=== PATIENT | male | born 1990 | race Caucasian/White ===

== ENCOUNTER 2019-10-14 12:04 | Outpatient (CLI) | payer SELFPAY ==
[2019-10-14 12:48] LABS: Basophils # 0.3 10^3/uL (0.0-0.1); Basophils % 2.3 %; Eosinophils # 1.4 10^3/uL (0.0-0.8); Eosinophils % 9.7 %; Hematocrit 49.7 % (42.0-52.0); Hemoglobin 15.6 g/dL (11.7-16.6); Lymphocytes # 4.1 10^3/uL (0.8-4.8); Lymphocytes % 28.8 %; Mean Corpuscular HGB Conc 31.4 g/dL (30.0-36.0); Mean Corpuscular Hemoglobin 26.9 pg (28.0-34.0); Mean Corpuscular Volume 85.7 fL (80-94); Monocytes # 0.8 10^3/uL (0.2-0.9); Monocytes % 5.7 %; Neutrophils % 53.2 %; Nucleated Red Blood Cells % 0.2 %; Platelet Count 30 10^3/cmm (130-400); Red Cell Distribution Width 18.9 % (12.1-15.1); White Blood Count 14.1 10^3/uL (4.0-10.0)
[2019-10-14 13:12] LABS: Alanine Aminotransferase 18 U/L (0-41); Albumin Level 4.5 g/dL (3.5-5.2); Alkaline Phosphatase 117 IU/L (40-130); Anion Gap 14.9 (5-19); Aspartate Amino Transferase 24 U/L (0-40); Blood Urea Nitrogen 11 mg/dL (6-20); Calcium 9.8 mg/dL (8.5-10.5); Carbon Dioxide 22 mmol/L (22-29); Chloride 104 mmol/L (98-107); Globulin 2.8 g/dL (1.3-4.6); Glomerular Filtration Rate 99.1 mL/min (90-130); Glucose 112 mg/dL (65-115); Osmolality Calculated 281 mOsm/kg (285-295); Potassium 3.9 mmol/L (3.5-5.1); Sodium 137 mmol/L (136-145); Total Bilirubin 0.4 mg/dL (0.15-1.2); Total Protein 7.3 g/dL (6.6-8.7)
[2019-10-14 14:01] LABS: Slide Review Slide Review Perform
--- NOTE | 2019-10-14 16:23 | ONC FU_ITS ---
Dr. Simmons follow up note Patient: Nimesh Flores Unit #: [id number]: 1990 Dicatated By: Sury Simmons M.D.Date of Visit:Oct 14, 2019 Onc Med Follow-up/Prog Note History of Present Illness: Mr. Nimesh Flores, 29 -year-old gentleman with long-standing history of ITP. As per patient ,he was probably 'born with it', as his mother also has history of ITP for which she underwent splenectomy with good response. As per patient he has been treated with Medrol Dosepak many a times, last time was in early 2016 and also being treated with IVIG on multiple occasions and last time was in August or September 2014 and his platelets count usually improved but always stayed under 100,000. Never had bone marrow evaluation done before , never received platelet infusion, and never received Rituxan therapy or chemotherapy for ITP. No major episode of gross bleeding requiring hospitalization or intervention and last nosebleed was about year ago No history of night sweats or peripheral lymphadenopathy or weight loss. 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 H/o ibuprofen every other day for many years for chronic body aches. Was treated with high-dose steroids dexamethasone without significant response then he was treated with Rituxan again refractory finally underwent splenectomy on 11/27/2017 and post splenectomy. Count was 117,000 on 11/27/2017 but subsequently dropped and now fluctuating between 27,000 and [id number] Went to hospital on 07/15/2018 with right hand injury, as per patient he got upset and punched a wall x-ray of right hand done on 07/15/2018 showed mildly comminuted transverse fracture middle diaphysis fourth metacarpal, now surgical intervention is under consideration and CBC done on 07/17/2018 showed platelets count 83,000, hemoglobin 14.9 hematocrit 46.1 and white blood count 16.1 which could be due to splenectomy or inflammation due to recent right hand injury Came for follow-up, denies any specific complaint except progressive heartburn indigestion but no hemoptysis or hematemesis, no melena or hematochezia, no jaundice, no petechia or ecchymosis, no nosebleed or gum bleed, no hematuria, overall feeling generalized weakness and fatigue and also has gained about 20 pounds since his last visit over a year ago, patient lost follow-up, for no particular reasons. Medications: HYDROcodone-Acetaminophen 1 - 2 Tablet (of 7.5-325 mg) Oral q 8 hours PRN Allergies: No Known Allergies. Review of Systems: Constitutional - Appetite is fair and weight is stable. No fever, chills, hot flashes, or night sweats. Energy level is poor. Pt states I just feel weak and tired , ENMT - No sinus congestion/drainage. No mouth sores. No sore throat or difficulty swallowing, Hematologic/Lymphatic - No abnormal bruising or bleeding, Respiratory - No shortness of breath. No cough. No pleuritic pain or hemoptysis, Cardiovascular - No angina pain. No palpitations, Gastrointestinal - No nausea or vomiting. No heartburn or acid reflux. No diarrhea or constipation. No blood in the stool or black stools, Genitourinary (M) - No dysuria or hematuria. No urinary frequency. No urgency or incontinence, Musculoskeletal - Pt denies pain, Integumentary - Denies alopecia, blistering, bruising, dry skin, facial burning, nail changes, photosensitivity, pruritus, rash and urticaria, Neurologic - No headache or dizziness. No numbness/paresthesias or other focal neurologic symptoms, Psychiatric - No anxiety or depression. No insomnia. Vital Signs: Performed on Oct 14, 2019 13:40 Height - 70.00 in Weight - 273.2 lbs (HIGH) BSA - 2.38 sq.m BMI - 39.20 (HIGH) Temperature - 99.3 F (HIGH) Pulse - 90 /min Respiration - 24 /min BP - 141/84 mm(hg) (HIGH) O2 Sat - 97 % Pain - 0 Performance Status: 0 - Fully active, able to carry on all predisease activities without restrictions. (ECOG) Physical Examination: ENMT - No mouth sores no thrush no jaundice, Respiratory - Lungs are clear, Cardiovascular - Regular rate and rhythm of heart, Abdomen - Soft, bowel sounds present, Extremities - No visible edema or old healing, ecchymosis. Lab/Imaging: Most recent lab results are not available for this patient. 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 Now status post splenectomy done on 11/27/2017 Postsplenectomy platelet count 117,000 on 11/27/2017 Status post Medrol Dosepak on many occasions last time was in early 2016 and IVIG probably 10 - 12 times last time was in August or September 2014, with [id number] response as later count usually stay under 100,000 Status post high-dose Decadron for 4 days till 07/17/2017 With no response eg ITP refractory to steroids No history of episode of major gross bleeding requiring intervention No history of bone marrow evaluation No history of Rituxan or chemotherapy use for ITP Chronic body aches takes ibuprofen 2 tablets every other day for many years Mother with history of ITP status post splenectomy with good results Episode of hematemesis after dose of high-dose dexamethasone status post EGD done on 07/09/2017 and he was also given platelet transfusion before the procedure. EGD showed hiatal hernia, in the prepyloric area, moderate diffuse gastritis which was erosive but there was no mucosal bleeding and duodenum was normal. He is now on Protonix and has had no further problems per his report. He has completed 4 weeks planned Rituxan. discussed with Mr Flores his bone marrow reports which showed no evidence of malignancy and megakaryocytes are normal in number and morphological development. Clinically it appears he has thrombocytopenia due to peripheral destruction probably due to ITP which is refractory to steroids. IVIG has been given in the past. His bone marrow showed adequate response and function.s/p r trial with Rituxan every week ???4 with no improvement, Subsequently underwent splenectomy On 11/27/2017 at that time his platelet count went up to 117,[address] 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 During follow-up his platelet count showed further drop to the range of 30,000, with no evidence of gross bleeding. Plan: Discussed with patient regarding his labs white blood count 14.1 hemoglobin 15.6 crit 49.7 platelets 30,000 with normal differential Clinically, patient is doing well with no signs symptoms suggestive of gross bleeding, follow-up CBC showed hemoglobin in the normal range with mild leukocytosis could be due to splenectomy but persistent moderate to severe thrombocytopenia resistant to main line treatment e.g. steroids, IVIG, Rituxan and now to splenectomy although his mother did respond well to splenectomy. Patient said his daughter was recently diagnosed with duong platelet syndrome and was wondering whether he has similar condition. Patient was told that he may need genetic testing to confirm like in patient with duong platelet syndrome usually there is NBEAL 2 gene mutation and on very rare occasion patient can have duong platelet syndrome even without this gene mutation. Moreover patient had bone marrow evaluation done here in the past which showed no evidence of myelofibrosis which is common in duong platelet syndrome and treatment is splenectomy and he has already undergone splenectomy. Or desmopressin. Being self-pay, patient is not interested in genetic testing at this point but in the future he may consider. Because of persistent heartburn indigestion, patient may have H. pylori induced gastritis and that is a common cause for ITP too, will consider EGD and if it shows any gastritis or peptic ulcer disease consider H. pylori testing and if it is positive then treatment, may benefit both indigestion heartburn as well as ITP Patient said when he was in correction about 2-3 years ago, he was tested for hepatitis and HIV and they were negative. We will also consider trial with TPO receptor agonist like Promacta, 50 mg p.o. daily if tolerated increase to 75 mg p.o. daily, patient is a self-pay so we will request assistance from manufacture. In the meantime we will review of peripheral blood smear, refer him to Dr. concepcion follow-up , possible EGD and H. pylori testing, also check TSH as some time hyperthyroidism can cause ITP, Return to clinic in 2 weeks with CBC and peripheral blood smear. Patient was advised in case of any evidence of gross bleeding, he need to go to hospital immediately and he was also advised to avoid any kind of trauma. Signed By: uSry Simmons M.D. <<Signature on File>>
[2019-10-14 19:13] LABS: LAB Peripheral Smear Sent for Review
== END 2019-10-14 12:05 | disposition home or self-care (01) ==
LOC: ONCMED 12:08
PROVIDERS: Visit Provider Internal Medicine Hematology & Oncology
DX: D69.3 Immune thrombocytopenic purpura (principal); R12 Heartburn; Z90.81 Acquired absence of spleen
CPT/HCPCS: 80053; 80500; 85025; 99214

== ENCOUNTER 2019-10-28 07:52 | Outpatient (CLI) | payer SELFPAY ==
[2019-10-28 08:39] LABS: Basophils # 0.5 10^3/uL (0.0-0.1); Basophils % 2.2 %; Eosinophils # 3.1 10^3/uL (0.0-0.8); Hematocrit 49.3 % (42.0-52.0); Hemoglobin 15.3 g/dL (11.7-16.6); Lymphocytes # 6.4 10^3/uL (0.8-4.8); Lymphocytes % 31.3 %; Mean Corpuscular Hemoglobin 26.9 pg (28.0-34.0); Mean Corpuscular Volume 86.6 fL (80-94); Monocytes # 1.3 10^3/uL (0.2-0.9); Monocytes % 6.4 %; Neutrophils # 9.14 10^3/uL (1.8-7.7); Neutrophils % 44.7 %; Nucleated Red Blood Cells # 0.1 /100WBC; Nucleated Red Blood Cells % 0.2 %; Positive M 1; Red Blood Count 5.69 10^6/uL (4.1-5.3); Red Cell Distribution Width 19.4 % (12.1-15.1); White Blood Count 20.5 10^3/uL (4.0-10.0)
[2019-10-28 09:06] LABS: Alanine Aminotransferase 19 U/L (0-41); Alkaline Phosphatase 101 IU/L (40-130); Anion Gap 12.1 (5-19); Aspartate Amino Transferase 22 U/L (0-40); Blood Urea Nitrogen 10 mg/dL (6-20); Calcium 8.7 mg/dL (8.5-10.5); Carbon Dioxide 23 mmol/L (22-29); Chloride 106 mmol/L (98-107); Globulin 3.1 g/dL (1.3-4.6); Glomerular Filtration Rate 132.4 mL/min (90-130); Glucose 112 mg/dL (65-115); Osmolality Calculated 281 mOsm/kg (285-295); Potassium 4.1 mmol/L (3.5-5.1); Sodium 137 mmol/L (136-145); Total Bilirubin 0.3 mg/dL (0.15-1.2); Total Protein 7.1 g/dL (6.6-8.7)
[2019-10-28 09:51] LABS: Platelet Count 73 10^3/cmm (130-400)
--- NOTE | 2019-10-29 17:03 | ONC FU_ITS ---
Dr. Simmons follow up note Patient: Nimesh Flores Unit #: [id number]: 1990 Dicatated By: Sury Simmons M.D.Date of Visit:Oct 28, 2019 Onc Med Follow-up/Prog Note History of Present Illness: Mr. Nimesh Flores, 29 -year-old gentleman with long-standing history of ITP. As per patient ,he was probably 'born with it', as his mother also has history of ITP for which she underwent splenectomy with good response. As per patient he has been treated with Medrol Dosepak many a times, last time was in early 2016 and also being treated with IVIG on multiple occasions and last time was in August or September 2014 and his platelets count usually improved but always stayed under 100,000. Never had bone marrow evaluation done before , never received platelet infusion, and never received Rituxan therapy or chemotherapy for ITP. No major episode of gross bleeding requiring hospitalization or intervention and last nosebleed was about year ago No history of night sweats or peripheral lymphadenopathy or weight loss. 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 H/o ibuprofen every other day for many years for chronic body aches. Was treated with high-dose steroids dexamethasone without significant response then he was treated with Rituxan again refractory finally underwent splenectomy on 11/27/2017 and post splenectomy. Count was 117,000 on 11/27/2017 but subsequently dropped and now fluctuating between 27,000 and 90012 Went to hospital on 07/15/2018 with right hand injury, as per patient he got upset and punched a wall x-ray of right hand done on 07/15/2018 showed mildly comminuted transverse fracture middle diaphysis fourth metacarpal, now surgical intervention is under consideration and CBC done on 07/17/2018 showed platelets count 83,000, hemoglobin 14.9 hematocrit 46.1 and white blood count 16.1 which could be due to splenectomy or inflammation due to recent right hand injury Came for follow-up, denies any specific complaint except as per patient, he took Promacta 50 mg p.o. daily for 2 days only when he developed severe headaches and and he called office and he was asked to hold until his return to clinic,, today he denies any more headaches no melena or hematochezia, no nosebleeds no gum bleed no petechia or ecchymosis, no hematuria. Medications: HYDROcodone-Acetaminophen 1 - 2 Tablet (of 7.5-325 mg) Oral q 8 hours PRN Allergies: No Known Allergies. Review of Systems: Constitutional - Appetite is fair and weight is stable. No fever, chills, hot flashes, or night sweats. Energy level is poor, ENMT - No sinus congestion/drainage. No mouth sores. No sore throat or difficulty swallowing, Hematologic/Lymphatic - No abnormal bruising or bleeding, Respiratory - No shortness of breath. No cough. No pleuritic pain or hemoptysis, Cardiovascular - No angina pain. No palpitations, Gastrointestinal - No nausea or vomiting. No heartburn or acid reflux. No diarrhea or constipation. No blood in the stool or black stools, Genitourinary (M) - No dysuria or hematuria. No urinary frequency. No urgency or incontinence, Musculoskeletal - Pt denies pain, Integumentary - Denies alopecia, blistering, bruising, dry skin, facial burning, nail changes, photosensitivity, pruritus, rash and urticaria, Neurologic - Positive for headaches. No dizziness. No numbness/paresthesias or other focal neurologic symptoms, Psychiatric - No anxiety or depression. No insomnia. Vital Signs: Performed on Oct 28, 2019 09:27 Height - 70.00 in Weight - 279.2 lbs (HIGH) BSA - 2.41 sq.m BMI - 40.06 (HIGH) Temperature - 98.3 F (LOW) Pulse - 85 /min Respiration - 18 /min BP - 158/78 mm(hg) (HIGH) O2 Sat - 97 % Pain - 0 Performance Status: 0 - Fully active, able to carry on all predisease activities without restrictions. (ECOG) Physical Examination: ENMT - Poor oral hygiene, no mouth sores, Respiratory - Lungs are clear, Cardiovascular - Regular rate and rhythm of heart, Abdomen - Soft, bowel sounds present, Extremities - No visible edema. Lab/Imaging: Test performed on Oct 14, 2019 12:17 Sodium 137 mmol/L Potassium 3.9 mmol/L Chloride 104 mmol/L CO2 22 mmol/L Anion Gap 14.9 BUN 11 mg/dL Creatinine 0.9 mg/dL Cr Clearance (Est) 210.36 mL/min eGFR 99.1 mL/min Glucose 112 mg/dL Calcium 9.8 mg/dL Protein, Total 7.3 g/dL Albumin 4.5 g/dL Globulin 2.8 g/dL Bilirubin, Total 0.4 mg/dL ALT (SGPT) 18 U/L AST (SGOT) 24 U/L Alkaline Phosphatase 117 IU/L WBC 14.1 10 3/uL RBC 5.80 10 6/uL HGB 15.6 g/dL HCT 49.7 % MCV 85.7 fL MCH 26.9 pg MCHC 31.4 g/dL RDW 18.9 % Platelet Count 30 10 3/cmm Neutrophils 7.50 10 3/uL Lymphocytes 4.1 10 3/uL Monocytes 0.8 10 3/uL Eosinophils 1.4 10 3/uL Basophils 0.3 10 3/uL Neutrophil % 53.2 % Lymphocyte % 28.8 % Monocyte % 5.7 % Eosinophil % 9.7 % Basophils % 2.3 % NRBC % 0.2 % CBC Slide Review Slide Review Perform Impression: 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 Now status post splenectomy done on 11/27/2017 Postsplenectomy platelet count 117,000 on 11/27/2017 Status post Medrol Dosepak on many occasions last time was in early 2016 and IVIG probably 10 - 12 times last time was in August or September 2014, with [id number] response as later count usually stay under 100,000 Status post high-dose Decadron for 4 days till 07/17/2017 With no response eg ITP refractory to steroids No history of episode of major gross bleeding requiring intervention No history of bone marrow evaluation No history of Rituxan or chemotherapy use for ITP Chronic body aches takes ibuprofen 2 tablets every other day for many years Mother with history of ITP status post splenectomy with good results Episode of hematemesis after dose of high-dose dexamethasone status post EGD done on 07/09/2017 and he was also given platelet transfusion before the procedure. EGD showed hiatal hernia, in the prepyloric area, moderate diffuse gastritis which was erosive but there was no mucosal bleeding and duodenum was normal. He is now on Protonix and has had no further problems per his report. He has completed 4 weeks planned Rituxan. discussed with Mr Flores his bone marrow reports which showed no evidence of malignancy and megakaryocytes are normal in number and morphological development. Clinically it appears he has thrombocytopenia due to peripheral destruction probably due to ITP which is refractory to steroids. IVIG has been given in the past. His bone marrow showed adequate response and function.s/p r trial with Rituxan every week ???4 with no improvement, Subsequently underwent splenectomy On 11/27/2017 at that time his platelet count went up to 117,[address] 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 During follow-up his platelet count showed further drop to the range of 30,000, with no evidence of gross bleeding. Plan: Discussed with patient regarding his labs white blood count 20.5 hemoglobin 15.3, hematocrit 49.3 platelets 73,000 compared to 30,000 on October 14, 2019, Peripheral blood smear done on October 14, 2019 showed marked thrombocytopenia with mild leukocytosis no blasts or blast equivalent cells identified Clinically, patient is doing well there are no signs symptom suggestive of gross bleeding, his follow-up labs showed his platelet count has improved to 73,000 from 30,000 on October 14, 2019, patient took Promacta 50 mg p.o. daily for 2 days starting October 21, 2019, when he developed severe headaches and he called the office and he was asked to hold. Patient said with that his headaches improved and patient also admits to smoking marijuana along with Promacta, not sure if there is any interaction. Patient was advised to not to smoke marijuana and try Promacta 50 mg p.o. daily again and if headaches happen we will discontinue permanently and may consider Nplate if needed. Patient return to clinic in 1 week with CBC Signed By: Sury Simmons M.D. <<Signature on File>>
== END 2019-10-28 07:53 | disposition home or self-care (01) ==
LOC: ONCMED 07:52
PROVIDERS: Visit Provider Internal Medicine Hematology & Oncology
DX: D69.3 Immune thrombocytopenic purpura (principal); R51 Headache; F12.90 Cannabis use, unspecified, uncomplicated; Z90.81 Acquired absence of spleen; Z79.1 Long term (current) use of non-steroidal anti-inflammatories (NSAID); Z83.2 Family history of diseases of the blood and blood-forming organs and certain disorders involving the immune mechanism; Z79.899 Other long term (current) drug therapy
CPT/HCPCS: 80053; 85025; 99214

== ENCOUNTER 2020-06-22 06:39 | Emergency (ER) | payer SELFPAY ==
[2020-06-22 06:44] VITALS: BP 149/80; PULSE 95; RESP 18; TEMP 36.6; O2SAT 96; BMI 34.2
--- NOTE | 2020-06-22 06:44 | XR_ITS ---
WS: [id number] Portable AP upright chest, 06/22/2020 Clinical Data: Cough Comparison: Portable chest, 11/13/2018 Findings: No nodules, masses or effusions are seen. The heart is normal. The pulmonary vascularity is not increased. No pneumonia or pneumothorax is seen. XR/XR chest 1V portable [id number] Impression: Negative chest.
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
[2020-06-22 07:04] VITALS: RESP 18; TEMP 36.6; O2SAT 96
== END 2020-06-22 07:04 | disposition home or self-care (01) ==
PROVIDERS: Emergency Provider Emergency Medicine
DX: Z04.1 Encounter for examination and observation following transport accident (principal); R07.89 Other chest pain; V89.2XXA Person injured in unspecified motor-vehicle accident, traffic, initial encounter
CPT/HCPCS: 71045; 99282

== ENCOUNTER → 2020-11-23 09:24 | Outpatient (BNVA) | payer OTHER, SELFPAY | PROVIDERS: Visit Provider Nurse Practitioner Family | DX: Z20.822 Contact with and (suspected) exposure to COVID-19 (principal) | CPT/HCPCS: 87635 ==

== ENCOUNTER → 2021-12-19 11:12 | Outpatient (BNVA) | payer OTHER, SELFPAY | PROVIDERS: Visit Provider Psychiatry & Neurology Psychiatry | DX: Z79.899 Other long term (current) drug therapy (principal); F41.1 Generalized anxiety disorder; F33.1 Major depressive disorder, recurrent, moderate | CPT/HCPCS: 80053; 80061; 83036; 84443; 85007; 85025 ==

== ENCOUNTER 2022-01-11 12:29 | Emergency (ER) | payer SELFPAY ==
[2022-01-11 13:12] VITALS: BP 135/79; PULSE 78; RESP 16; TEMP 36.5; O2SAT 97; BMI 36.1
--- NOTE | 2022-01-11 13:23 | US_ITS ---
WS: [id number] ULTRASOUND SOFT TISSUES RIGHT forearm. HISTORY: concern for tendon rupture Right upper arm vs hematoma COMPARISON: None available. TECHNIQUE: 2-D and color Doppler imaging is submitted. Hypoechoic mass centered in the soft tissues of the RIGHT anterior forearm. Mass measures 1.2 x 2.8 c m. There is no increased vascularity. There is adjacent edema within the subcutaneous fat. US/US soft tissue/extremity [id number] IMPRESSION: Hypoechoic mass in the anterior RIGHT forearm is probably a hematoma which is n ot liquefied. If mass does not resolve over the next few weeks additional imagi ng with MRI can be obtained.
--- NOTE | 2022-01-11 15:09 | W.ED.EXTPRO ---
HPI - Extremity Problem General: Chief complaint: Extremity Injury, Upper Stated complaint: arm abnormality Time Seen by Provider: 01/11/22 13:19 History of Present Illness: Patient reports that just prior to arrival he was lifting a cart into the freezer at work and felt a pop in his right upper arm and had sudden pain. He reports significant swelling after that. 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 Review of Systems Musc: Reports: other (Pain, swelling, tenderness right biceps region) [facility] ED PFSH: Medical History Psychiatric care Social History Smoking and tobacco status: current every day smoker cigarettes Physical Exam Const: COMMON NORMALS: no acute distress, patient oriented x3 and alert Resp: COMMON NORMALS: normal respiratory effort and No use of accessory muscles Extremity: NARRATIVE EXTREMITY EXAM: There is a tender mass just above the right AC approximately golf ball size. He reports this just appeared there is some bruising noted. Full range of motion of the arm. CSM within normal limits to the distal arm and hand. EXTREMITY IMAGE (FRONT): 1. Tender mass approximately golf ball sized Neuro: COMMON NORMALS: patient oriented x3 SENSORIUM/ORIENTATION: Yes alert Course Vital Signs: Vital signs: Vital Signs Temperature 97.7 F 01/11/22 15:34 Pulse Rate 78 01/11/22 15:34 Respiratory Rate 16 01/11/22 15:34 Blood Pressure 127/73 01/11/22 15:34 Pulse Oximetry 97 01/11/22 15:34 Oxygen Delivery Me thod 01/11/22 13:12 MDM - Extremity (Nontraumatic) Medical Decision Making Patient is in today for acute onset pain, swelling, bruising right upper arm. This happened after lifting a cart at work. He does report a history of ITP. Ultrasound done to evaluate for tendon rupture versus hematoma. Ultrasound shows a hypoechoic mass consistent with hematoma. Discussed conservative treatments at home. Advised patient to follow-up with primary care provider if this is not resolving over the next couple of weeks. Return to ER for any new or worsening symptoms. Lab Data Radiology Impressions Soft Tissue Ultrasound 01/11/22 13:23 IMPRESSION: Hypoechoic mass in the anterior RIGHT forearm is probably a hematoma which is not liquefied. If mass does not resolve over the next few weeks additional imaging with MRI can be obtained. Discharge Plan Discharge Patient Disposition: Home Clinical Impression: Hematoma Condition: Stable Discharge Orders: Discharge ED (Routine); Ordered 01/11/22 Ordered By: Precious Parada Discharge Diet: Usual diet Discharge Activity: Increase activity as tolerated Patient Instructions: Hematoma (ED) Activity Restrictions/Additional Instructions: You may use a lightly wrapped Johnny wrap to the area to help with swelling. Ice the area 3-4 times a day 10 minutes each time. Tylenol and Motrin as needed for pain. This should resolve over the next couple of weeks however if it is persisting or not improving please follow-up with your primary care provider. If your symptoms are new or worsening please return back to the emergency department. Stand Alone Forms: Work/School Release Coding Level of Care Code ED Archaeology Professor for Kristen Schulz Exam Expanded Problem Focused
[2022-01-11 15:34] VITALS: BP 127/73; PULSE 78; RESP 16; TEMP 36.5; O2SAT 97
== END 2022-01-11 15:36 | disposition home or self-care (01) ==
PROVIDERS: Emergency Provider Nurse Practitioner Family
DX: S40.021A Contusion of right upper arm, initial encounter (principal); F17.210 Nicotine dependence, cigarettes, uncomplicated; X50.0XXA Overexertion from strenuous movement or load, initial encounter; Y99.0 Civilian activity done for income or pay
CPT/HCPCS: 76882; 99284

== ENCOUNTER 2022-07-28 19:40 | Emergency (ER) | payer SELFPAY ==
[2022-07-28 19:45] VITALS: BP 132/74; PULSE 84; RESP 16; TEMP 36.4; O2SAT 97
--- NOTE | 2022-07-28 19:54 | ED_ITS ---
HPI - Extremity Problem General: Chief complaint: Extremity Injury, Lower Stated complaint: left leg injury Time Seen by Provider: 07/28/22 19:53 History of Present Illness: 32-year-old male patient comes in for injury to the left lower leg. Patient was mowing the lawn today when the blade came off the mower striking him in the left anterior lower leg. An abrasion and swelling is noted to the extremity no laceration is noted. Patient appears nontoxic. Patient appears in moderate pain. Associated symptoms: Deny fever(s) or rash Review of Systems Const: Denies: fever(s) Resp: Denies: dyspnea GI: Denies: abdominal pain : Denies: difficulty urinating Musc: Reports: extremity pain and extremity swelling Skin/Breast: Reports: new lesions; Denies: rash PFSH ED PFSH: Medical History Psychiatric care Social History Smoking and tobacco status: current every day smoker cigarettes Physical Exam Const: COMMON NORMALS: alert HENMT: COMMON NORMALS: normocephalic HEAD & SCALP: normocephalic Neck/C-Spine: COMMON NORMALS: full ROM Resp: COMMON NORMALS: normal respiratory effort and clear to auscultation bilaterally AUSCULTATION: clear to auscultation bilaterally Cardio: COMMON NORMALS: regular rate and regular rhythm RATE: regular rate RHYTHM: regular rhythm GI: COMMON NORMALS: Soft to palpation and non-tender PALPATION: Yes Soft to palpation Back/Pelvis: COMMON NORMALS: thoracic and lumbar spine normal to inspection Extremity: COMMON NORMALS: full ROM LEFT LOWER EXTREMITY: Yes lower leg (Mild swelling and bruising to the left lower leg with a linear abrasion) Left lower leg: Yes inspection, Yes palpation and Yes neurovascular exam Neuro: SENSORIUM/ORIENTATION: Yes alert Skin: TRAUMA: abrasion (Linear abrasion left lower leg and dorsal foot) Course Vital Signs: Vital signs: Vital Signs Temperature 97.6 F 07/28/22 19:45 Pulse Rate 84 07/28/22 19:45 Respiratory Rate 16 07/28/22 19:45 Blood Pressure 132/74 07/28/22 19:45 Pulse Oximetry 97 07/28/22 19:45 Oxygen Delivery Me thod Room Air 07/28/22 19:45 MDM - Extremity (Nontraumatic) Medical Decision Making 32-year-old male patient comes in for evaluation of injury to the left lower leg. On exam patient appears nontoxic. Patient appears in no acute distress. Patient has some swelling and bruising with a linear abrasion to the lower left anterior leg and the dorsal left foot. No obvious deformity is noted. Patient is weightbearing on the extremity. Differential diagnosis includes abrasion, fracture, contusion. X-rays noted no obvious fractures. Believe patient just sustained an abrasion with contusion. Elastic bandage was applied to help with the control of bruising and swelling. Patient was recommended to monitor for signs of infection. Patient was recommended to follow-up with primary care. Patient reported understanding and agreed to plan. Discharge Plan Discharge Patient Disposition: Home Clinical Impression: Contusion of left lower leg, initial encounter Condition: Stable Prescriptions: New hydrocodone-acetaminophen 5-325 mg tablet 1 tab PO Q6H PRN (Reason: pain (scale score 7-10)) Qty: 6 0RF Discharge Orders: Discharge ED (Routine); Ordered 07/28/22 Ordered By: Mendoza Saxena Discharge Diet: Usual diet Discharge Activity: Increase activity as tolerated Patient Instructions: Contusion in Adults (ED), Opioid Safety Activity Restrictions/Additional Instructions: Use elastic bandage for swelling and comfort. Use ice for further pain relief. Use acetaminophen and ibuprofen to help control pain. Use hydrocodone for severe pain. Follow-up with primary care in 1 week for recheck. Return to ED for new concerns. Coding Level of Care Code ED Outside Sales Account Executive for Kristen Schulz
--- NOTE | 2022-07-28 19:57 | XRR_ITS ---
PROCEDURE INFORMATION: Exam: XR Left Foot Exam date and time: 07/28/2022 8:29 PM Age: 32 years old Clinical indication: Pain; Foot; Left; Additional info: Injury, pain on top of foot TECHNIQUE: Imaging protocol: Radiologic exam of the left foot. Views: 3 or more views. COMPARISON: No relevant prior studies available. FINDINGS: Bones/joints: Osseous structures are intact. Negative for fracture. Soft tissues: Soft tissue swelling noted along the dorsal midfoot. XR/XR foot LT min 3V* [id number] IMPRESSION: No acute osseous abnormalities.
--- NOTE | 2022-07-28 19:57 | XRR_ITS ---
PROCEDURE INFORMATION: Exam: XR Left Tibia and Fibula Exam date and time: 07/28/2022 8:29 PM Age: 32 years old Clinical indication: Pain; Lower leg; Left; Additional info: Injury, ap pain lower tib fib TECHNIQUE: Imaging protocol: Radiologic exam of the left tibia and fibula. Views: 2 views. COMPARISON: No relevant prior studies available. FINDINGS: Bones/joints: Tibia and fibula are intact. Negative for fracture. Soft tissues: Normal. XR/XR tibia fibula LT 2V [id number] IMPRESSION: No acute findings.
[2022-07-28] MEDS: HYDROcodone-acetaminophen 10-325 mg Tablet 1 TAB PO (20:04)
--- NOTE | 2022-08-05 13:44 | DCPLANNER ---
TCM called patient due to no primary care physician - no answer at this time.
== END 2022-07-28 20:56 | disposition home or self-care (01) ==
PROVIDERS: Emergency Provider Nurse Practitioner Family
DX: S80.12XA Contusion of left lower leg, initial encounter (principal); F17.210 Nicotine dependence, cigarettes, uncomplicated; W20.8XXA Other cause of strike by thrown, projected or falling object, initial encounter
CPT/HCPCS: 73590; 73630; 99283

== ENCOUNTER 2022-10-19 14:19 | Emergency (ER) | payer SELFPAY ==
[2022-10-19 14:23] VITALS: BP 147/80; PULSE 74; RESP 15; TEMP 36.6; O2SAT 98; BMI 34.7
--- NOTE | 2022-10-19 14:31 | W.ED.DENTAL ---
HPI - Dental/Oral General: Chief complaint: Dental/Oral Stated complaint: swollen face, blury eyes Time Seen by Provider: 10/19/22 14:31 History of Present Illness: 32-year-old gentleman with history of ITP presented to the emergency department for evaluation of facial and dental concerns. Notes breaking a tooth 2 days ago and this morning woke up with facial swelling on the right side of his face in the maxillary region up towards his eye as well as increased dental pain. He pushed on it and managed to express pus from the broken tooth. Minimal blurry vision however improved with improvement in swelling. Patient has extremely poor dentition. Moderate to severe intensity pain. No other specific changes in health, exacerbating, or alleviating factors identified. Onset (ago): hour(s) Severity: moderate Exacerbating factors: chewing Associated symptoms: Reports no associated symptoms Review of Systems General: Reports: 10 or more systems reviewed and unremarkable except in HPI and below PFSH ED PFSH: Medical History Psychiatric care Social History Smoking and tobacco status: current every day smoker cigarettes Physical Exam Const: COMMON NORMALS: alert GENERAL APPEARANCE: cooperative and well developed HENMT: COMMON NORMALS: normocephalic and atraumatic HEAD & SCALP: normocephalic and atraumatic THROAT: posterior oropharynx normal OTHER: Minimal right maxillary region edema, no cellulitic changes, no trismus. Extremely poor dentition with significant erosion of affected teeth as well as tooth of concern. No palpable residual abscess requiring drainage. With palpation I am able to express continued mild amount of drainage. No evidence of posterior pharyngeal abnormality. No trismus. No evidence of deep infection on clinical exam Eye: COMMON NORMALS: conjunctivae normal CONJUNCTIVA: Yes conjunctivae normal SCLERA: sclerae normal OTHER: No evidence of ocular entrapment. No evidence of orbital or periorbital cellulitis. Neck/C-Spine: COMMON NORMALS: supple GENERAL: Yes trachea midline Resp: COMMON NORMALS: normal respiratory effort EFFORT & INSPECTION: Yes able to speak in complete sentences Cardio: COMMON NORMALS: regular rate and regular rhythm RATE: regular rate RHYTHM: regular rhythm GI: COMMON NORMALS: Soft to palpation PALPATION: Yes Soft to palpation and No Tenderness to palpation present (GI) PERCUSSION: normal to percussion Extremity: GENERAL: Yes normal exam except as noted and No edema Neuro: COMMON NORMALS: moves all extremities SENSORIUM/ORIENTATION: Yes alert and No Orientation impaired Psych: COMMON NORMALS: mental status grossly normal and Normal thought process present THOUGHT PROCESS: Normal thought process present Course Vital Signs: Vital signs: Vital Signs Temperature 97.9 F 10/19/22 14:23 Pulse Rate 77 10/19/22 15:03 Respiratory Rate 18 10/19/22 15:03 Blood Pressure 147/80 10/19/22 15:03 Pulse Oximetry 98 10/19/22 15:03 Oxygen Delivery Me thod Room Air 10/19/22 14:23 MDM - Dental/Oral Medical Decision Making 32-year-old gentleman presenting with draining dental abscess. Swelling of face has improved. No evidence of ocular entrapment or orbital cellulitis. No evidence of deep space infection on exam. No indication for labs or imaging. Treated with analgesia and antibiotic which will be continued. The results of ED evaluation were discussed with the patient including prescriptions and/or symptomatic cares (if applicable) including appropriate and responsible use, followup plan, and return precautions. The patient verbalized understanding and felt safe for discharge. Medical Records I reviewed the patient's medical records. Lab Data I reviewed the patient's lab results. Discharge Plan Discharge Patient Disposition: Home Clinical Impression: Dental abscess, Dental caries Condition: Stable Prescriptions: New oxycodone 5 mg tablet 5 mg PO Q4H PRN (Reason: pain) Qty: 10 0RF amoxicillin-pot clavulanate 875-125 mg tablet 1 tab PO BID Qty: 20 0RF No Action hydrocodone-acetaminophen 5-325 mg tablet 1 tab PO Q6H PRN (Reason: pain (scale score 7-10)) Qty: 6 0RF Discharge Orders: Discharge ED (Routine); Ordered 10/19/22 Ordered By: Reddy Sheehan Discharge Diet: Advance as tolerated and Clear Liquid Discharge Activity: Increase activity as tolerated Patient Instructions: Dental Abscess (ED), Mouth Care (ED), Opioid Safety Activity Restrictions/Additional Instructions: Thank you for visiting the emergency department. You were seen and evaluated for dental pain and facial swelling. The most likely cause of your symptoms is related to dental infection and abscess. Given spontaneous drainage and overall clinical appearance I believe that outpatient management with antibiotics and pain control is appropriate. You do require follow-up with a dentist. Return for worsening symptoms, difficulty opening the mouth or difficulty swallowing, any difficulty breathing, increased swelling, pain or swelling on the underside of the jaw or underneath the tongue, or anything else that you are concerned about and feel needs emergency department evaluation. Coding Level of Care Code ED Division Order Analyst for Kristen Schulz
[2022-10-19 14:57] VITALS: RESP 16; O2SAT 97
[2022-10-19] MEDS: amoxicillin-clav 875-125 mg Tablet 1 TAB PO (14:57)
[2022-10-19] MEDS: oxyCODONE 5 mg IR Tab/Cap PO (14:57)
[2022-10-19 15:03] VITALS: BP 147/80; PULSE 77; RESP 18; O2SAT 98
== END 2022-10-19 15:04 | disposition home or self-care (01) ==
PROVIDERS: Emergency Provider Emergency Medicine
DX: K02.9 Dental caries, unspecified (principal); K04.7 Periapical abscess without sinus; F17.210 Nicotine dependence, cigarettes, uncomplicated
CPT/HCPCS: 99283